=== PATIENT | female | born 1990 | race Caucasian/White ===

== ENCOUNTER 2016-09-14 07:49 | Inpatient (IN) | payer OTHER ==
[2016-09-14] VITALS (32 sets, daily range): BP systolic 110–140; BP diastolic 54–84; PULSE 68–88; RESP 16–18; TEMP 97.8–98.1
[~2016-09-14] VITALS: Ht 167.6 cm; Wt 72.6 kg
[2016-09-14] MEDS ORDERED: LACTATED RINGER'S 1000 ML INJ 1,000 ML IV PRN (08:51)
[2016-09-14] MEDS ORDERED: CITRIC ACID-SODIUM CITRATE LIQ 30 ML UDC PO SCH (09:00)
[2016-09-14] MEDS ORDERED: LIDOCAINE HCL 1% 50 ML VIAL INFIL PRN (09:00)
[2016-09-14] MEDS ORDERED: LIDOCAINE HCL 1% 50 ML VIAL I-DERMAL PRN (09:00)
[2016-09-14] MEDS ORDERED: MINERAL OIL 10 ML VIAL TOPICAL PRN (09:00)
[2016-09-14] MEDS ORDERED: OXYTOCIN 30 UNITS-500ML PREMIX 500 ML IV ONE (09:00)
[2016-09-14] MEDS ORDERED: SODIUM CHLORID 0.9% 500 ML INJ 500 ML IV PRN (09:00)
[2016-09-14] MEDS ORDERED: OXYTOCIN 30 UNITS-500ML PREMIX 500 ML IV SCH (09:00)
[2016-09-14] MEDS ORDERED: PENICILLIN G POTASSIUM INJ 5,000,000 UNITS in SODIUM CHLORIDE 0.9% INJ 100 ML IV ONE ×2 (09:00→22:00)
[2016-09-14 09:04] LABS: AUTOMATED NEUTROPHIL # 13.2 TH/MM3 (1.8-7.7); BASOPHIL # 0.1 TH/MM3 (0-0.2); BASOPHIL % 0.4 % (0.0-2.0); EOSINOPHIL # 0.1 TH/MM3 (0-0.4); EOSINOPHIL % 0.5 % (0.0-4.0); HEMATOCRIT 36.2 % (35.0-46.0); LYMPH % 14.3 % (9.0-44.0); LYMPHOCYTE # 2.4 TH/MM3 (1.0-4.8); MEAN CELL VOLUME 93.2 FL (80.0-100.0); MEAN CORPUSCULAR HEMOGLOBIN 31.5 PG (27.0-34.0); MEAN CORPUSCULAR HGB CONC 33.9 % (32.0-36.0); MONO % 5.6 % (0.0-8.0); NEUT % 79.2 % (16.0-70.0); PLATELET COUNT 237 TH/MM3 (150-450); RED BLOOD COUNT 3.88 MIL/MM3 (4.00-5.30); RED CELL DISTRIBUTION WIDTH 13.3 % (11.6-17.2); WHITE BLOOD COUNT 16.6 TH/MM3 (4.0-11.0)
[2016-09-14 09:08] LABS: HEMO FLAGS AUTO DIFF
[2016-09-14] MEDS ORDERED: SODIUM CHLOR 0.9% 1000 ML INJ 1,000 ML IV PRN (09:11)
[2016-09-14 09:12] LABS: BACTERIA, URINE FEW /hpf; BLOOD, URINE NEG (NEG); COMMENT (UR) CULT NOT INDICATED; CULTURE IF INDICATED CULT NOT INDICATED; GLUCOSE,URINE NEG (NEG); KETONE, URINE NEG (NEG); MUCUS URINE FEW /lpf (OCC); NITRITE,URINE NEG (NEG); SQUAMOUS EPITHELIAL CELL URINE 6 /hpf (0-5); URINE COLOR YELLOW (YELLW/STRAW)
[2016-09-14 09:52] LABS: BANDS 14 % (0-6); MYELOCYTES 5 % (0-0); NEUTROPHIL # MANUAL DIFF 13.4 TH/MM3 (1.8-7.7); PLATELET ESTIMATE SMEAR NORMAL (NORMAL); POLYS (SEG NEUTROPHILS) 62 % (16-70); WBC DIFF SAMPLE 100
[2016-09-14 09:53] LABS: PLATELET MORPHOLOGY ENLARGED (NORMAL); SCAN/DIFF FINAL DIFF MANUAL
[2016-09-14] MEDS ORDERED: PREN29TA PO (10:04)
[2016-09-14] MEDS ORDERED: MISOPROSTOL 25 MCG SUPP VAGINAL PRN (10:15)
[2016-09-14] MEDS: LACTATED RINGER'S 1000 ML INJ 1,000 ML IV SCH ×2 (10:26→16:51)
[2016-09-14] MEDS ORDERED: PENICILLIN G POTASSIUM INJ 2,500,000 UNITS in SODIUM CHLORIDE 0.9% INJ 100 ML IV SCH (13:00)
[2016-09-14] MEDS ORDERED: fentaNYL 2MCG-BUPIV 0.125% INJ 100 ML ONE (21:33)
[2016-09-14] MEDS ORDERED: ePHEDrine/NS 25 MG/5 ML SYR ONE (21:33)
--- NOTE | 2016-09-14 21:58 | HHI.HP ---
HPI Chief Complaint induction at 39 weeks Date Seen: Sep 14, 2016 Time Seen: 09:00 Travel History International Travel<30 Days: No Contact w/Intl Traveler<30Days: No Known Affected Area: No History of Present Illness HPI good care with good dates and DOANTO 09/15/2016 Para: 0 : 2 Miscarriage: 1 History Past Medical History Medical History: Denies Significant Hx Obstetric History Obstetric History miscarriage end of 2015 Past Surgical History Narrative Surgical none Surgical History: No Previous Surgery Family History Family History: Negative Social History Alcohol Use: No Tobacco Use: No Substance Abuse: No Allergies-Medications (Allergen,Severity, Reaction): Coded Allergies: No Known Allergies (Unverified , 09/14/16) Home Meds Reported Medications Vit-Iron Carbonyl ( Plus Iron 29-1 mg)1 Tab Tab1 Tab PO DAILY #30 TAB Ref 0 09/14/16 Review of Systems Except as stated in HPI: all other systems reviewed are Neg Physical Exam Vital Signs Date Time Temp Pulse Resp B/P Pulse Ox O2 Delivery O2 Flow Rate FiO2 09/14/16 21:30 68 135/78 09/14/16 20:30 83 121/72 09/14/16 20:05 16 09/14/16 20:04 78 126/80 09/14/16 20:00 98.1 09/14/16 19:00 77 126/79 09/14/16 18:30 86 130/77 09/14/16 18:00 78 125/74 09/14/16 17:30 72 127/74 09/14/16 17:23 78 129/73 09/14/16 16:50 83 129/79 09/14/16 16:30 97.8 09/14/16 16:30 81 124/76 09/14/16 16:00 86 120/73 09/14/16 15:44 70 127/84 09/14/16 15:31 75 130/67 09/14/16 15:15 83 136/77 09/14/16 14:44 84 125/71 Narrative GENERAL: Well-nourished, well-developed patient. SKIN: Warm and dry. HEAD: Normocephalic and atraumatic. EYES: No scleral icterus. No injection or drainage. ENT: No nasal drainage noted. Mucous membranes pink. Airway patent. NECK: Supple, trachea midline. No JVD. CARDIOVASCULAR: Regular rate and rhythm without murmurs, gallops, or rubs. RESPIRATORY: Breath sounds equal bilaterally. No accessory muscle use. BREASTS: Bilateral exam showed no masses , no retractions, no nipple discharge. ABDOMEN/GI: Abdomen soft, non-tender, bowel sounds present, no rebound, no guarding Gravid to 39weeks size Fundal Height: [-] GENITOURINARY: External Genitalia: intact and normal in appearance BUS glands: [-] Cervix: Closed Dilatation: [-] Effacement: [-] Station: -2 Presentation: vtx Membranes: intact Uterine Contractions: none FHT's: Category: 1 Baseline: [-] Reactive: [-] Variability: [-] Decels: [-] EXTREMITIES: No cyanosis or edema. BACK: Nontender without obvious deformity. No CVA tenderness. NEUROLOGICAL: Awake and alert. Motor and sensory grossly within normal limits. Five out of 5 muscle strength in all muscle groups. Normal speech. Data Data Vital Signs Reviewed: Yes Orders Admit To Inpatient (09/14/16 ) Code Status (09/14/16 08:51) Vital Signs (Adult) .Per protocol (09/14/16 08:51) ^ Heart (09/14/16 08:51) ^ Amnioinfusion (09/14/16 08:51) Urinary Catheter Management .ONCE (09/14/16 08:51) Lactated Ringer's 1000 Ml Inj (Lr 1000 M (09/14/16 08:51) Lactated Ringer's 1000 Ml Inj (Lr 1000 M (09/14/16 08:51) Sodium Chlorid 0.9% 500 Ml Inj (Ns 500 M (09/14/16 09:00) Sodium Chlor 0.9% 1000 Ml Inj (Ns 1000 M (09/14/16 09:11) Lidocaine 1% Inj (50 Ml) (Xylocaine 1% I (09/14/16 09:00) Citric Acid-Sodium Citrate Liq (Bicitra (09/14/16 09:00) Fentanyl Inj (Fentanyl Inj) (09/14/16 09:00) Fentanyl Inj (Fentanyl Inj) (09/14/16 09:00) Complete Blood Count With Diff (09/14/16 08:51) Hold Clot (09/14/16 08:51) Abo/Rh Blood Type (09/14/16 08:51) Urinalysis - C+S If Indicated (09/14/16 08:51) Resp Oxygen Non Rebreathe Mask (09/14/16 ) ^ Epidural / Intrathecal Infus (09/14/16 08:51) Oxytocin 30 Units-500ml Premix (Pitocin (09/14/16 09:00) Lidocaine 1% Inj (50 Ml) (Xylocaine 1% I (09/14/16 09:00) Light Mineral Oil (Muri-Lube Oil) (09/14/16 09:00) Inpatient Certification (09/14/16 ) Specimen To Be Collected PRN (09/14/16 08:51) ^ Non Stress Test (09/14/16 08:53) Response To Medication .Post New Med Administration, Reaction (09/14/16 08:53) ^ Discontinue Medication (09/14/16 08:53) Oxytocin 30 Units-500ml Premix (Pitocin (09/14/16 09:00) Penicillin G Potassium Inj (Pfizerpen-G (09/14/16 09:00) Penicillin G Potassium Inj (Pfizerpen-G (09/14/16 13:00) Diet Regular Basic (09/14/16 Breakfast) ^ Labor Induction (09/14/16 09:30) ^ Vaginal Insert (09/14/16 09:30) ^ Vaginal Lavage (09/14/16 09:30) ^ Heart (09/14/16 09:30) Misoprostol Supp (Cytotec Supp) (09/14/16 10:15) Penicillin G Potassium Inj (Pfizerpen-G (09/14/16 22:00) Penicillin G Potassium Inj (Pfizerpen-G (09/15/16 02:00) Fentanyl 2mcg-Bupiv 0.125% Inj (Fentanyl (09/14/16 21:33) Ephedrine/Ns 25 Mg/5 Ml Syr (Ephedrine/N (09/14/16 21:33) Labs Laboratory Tests Test 09/14/16 09/14/16 08:00 08:30 Urine Color YELLOW Urine Turbidity HAZY Urine pH 6.0 Urine Specific [place] 1.015 Urine Protein NEG Urine Glucose (UA) NEG Urine Ketones NEG Urine Occult Blood NEG Urine Nitrite NEG Urine Bilirubin NEG Urine Urobilinogen LESS THAN 2.0 Urine Leukocyte Esterase TRACE Urine RBC 4 Urine WBC 6 Urine Squamous Epithelial 6 Cells Urine Bacteria FEW Urine Mucus FEW Microscopic Urinalysis Comment CULT NOT INDICATED White Blood Count 16.6 Red Blood Count 3.88 Hemoglobin 12.2 Hematocrit 36.2 Mean Corpuscular Volume 93.2 Mean Corpuscular Hemoglobin 31.5 Mean Corpuscular Hemoglobin 33.9 Concent Red Cell Distribution Width 13.3 Platelet Count 237 Mean Platelet Volume 10.5 Neutrophils (%) (Auto) 79.2 Lymphocytes (%) (Auto) 14.3 Monocytes (%) (Auto) 5.6 Eosinophils (%) (Auto) 0.5 Basophils (%) (Auto) 0.4 Neutrophils # (Auto) 13.2 Lymphocytes # (Auto) 2.4 Monocytes # (Auto) 0.9 Eosinophils # (Auto) 0.1 Basophils # (Auto) 0.1 CBC Comment AUTO DIFF Differential Total Cells 100 Counted Neutrophils % (Manual) 62 Band Neutrophils % 14 Lymphocytes % 17 Monocytes % 2 Neutrophils # (Manual) 13.4 Myelocytes 5 Differential Comment FINAL DIFF MANUAL Platelet Estimate NORMAL Platelet Morphology Comment ENLARGED Blood Type O POSITIVE Blood Bank Comment Band and Hold Assessment/Plan Problem List: (1) 39 weeks gestation of Assessment and Plan cytotec induction Jimmy Jo MD Sep 14, 2016 21:58
--- NOTE | 2016-09-14 22:03 | PD.LABORPN ---
Subjective Subjective patient had 1 dose of cytotec and cervix is 1 cm and ok to start pitocin to augment, counselled about options at 2 cm and 12 hours into induction and she opted for AROM Objective Vital Signs Vital Signs Date Time Temp Pulse Resp B/P Pulse Ox O2 Delivery O2 Flow Rate FiO2 09/14/16 21:30 68 135/78 09/14/16 20:30 83 121/72 09/14/16 20:05 16 09/14/16 20:04 78 126/80 09/14/16 20:00 98.1 09/14/16 19:00 77 126/79 09/14/16 18:30 86 130/77 09/14/16 18:00 78 125/74 09/14/16 17:30 72 127/74 09/14/16 17:23 78 129/73 09/14/16 16:50 83 129/79 09/14/16 16:30 97.8 09/14/16 16:30 81 124/76 09/14/16 16:00 86 120/73 09/14/16 15:44 70 127/84 09/14/16 15:31 75 130/67 09/14/16 15:15 83 136/77 09/14/16 14:44 84 125/71 Objective Pelvic Exam: Cervix: [-] Dilatation: 2 Effacement: 50 Station: -2 Presentation: vtx Membranes: ruptured Uterine Contractions: [-] FHT's: Category: 1 Baseline: [-] Reactive: [-] Variability: [-] Decels: [-] Assessment/Plan Problem List: (1) 39 weeks gestation of Assessment and Plan AROM clear and comitted to delivery Jimmy Jo MD Sep 14, 2016 22:03
[2016-09-14] MEDS ORDERED: DO NOT ADMINISTER ANTICOAGULANTS XX PRN (22:30)
[2016-09-14] MEDS ORDERED: ePHEDrine/NS 25 MG/5 ML SYR IV PRN (22:30)
[2016-09-14] MEDS ORDERED: NO SYSTEM NARCOTICS XX PRN (22:30)
[2016-09-15] VITALS (52 sets, daily range): BP systolic 98–148; BP diastolic 50–97; PULSE 67–102; RESP 18–20; TEMP 97.9–99.7
[2016-09-15] MEDS: LACTATED RINGER'S 1000 ML INJ 1,000 ML IV SCH ×3 (00:51→16:51)
[2016-09-15] MEDS: fentaNYL 2MCG-BUPIV 0.125% 100 ML EPIDURAL SCH ×2 (01:58→04:06)
[2016-09-15] MEDS: PENICILLIN G POTASSIUM INJ 2,500,000 UNITS in SODIUM CHLORIDE 0.9% INJ 100 ML IV SCH ×4 (02:06→18:00)
[2016-09-15] MEDS ORDERED: BUPIVACAINE HCL PF 0.25% 10 ML VIAL ONE (08:18)
[2016-09-15] MEDS ORDERED: LIDOCAINE HCL 1.5% PF SOLN 20 ML AMP ONE (08:18)
[2016-09-15] MEDS ORDERED: ONDANSETRON ODT 4 MG TAB PO PRN (13:00)
[2016-09-15] MEDS ORDERED: DOCUSATE SODIUM 50 MG/SENNA 8.6 MG TAB PO PRN (13:00)
[2016-09-15] MEDS ORDERED: BENZOCAINE 20% TOPICAL SPRAY 60 ML CAN TOPICAL PRN (13:00)
[2016-09-15] MEDS ORDERED: ALUMINUM/MAGNESIUM/SIMETH 30 ML CUP PO PRN (13:00)
[2016-09-15] MEDS ORDERED: ZOLPIDEM TARTRATE 5 MG TAB PO PRN (13:00)
[2016-09-15] MEDS ORDERED: WITCH HAZEL 50%/GLYCERIN 12.5% 40 PAD JAR TOPICAL PRN (13:00)
[2016-09-15] MEDS ORDERED: SODIUM CHLORIDE 0.9% FLUSH 10 ML FLUSH IV FLUSH PRN (13:00)
[2016-09-15] MEDS: IBUPROFEN 600 MG TAB PO PRN (14:45)
--- NOTE | 2016-09-15 15:15 | PD.OB.DELI ---
Delivery Date: Sep 15, 2016 Anesthesia: Epidural Episiotomy: Right mediolateral Vaginal Delivery: Vacuum Presentation: Occiput anterior Nuchal Cord: None Delayed cord clamping (45 sec): Yes : Male, Single Weight: 7# 9 oz Infant Care: Spontaneous crying Placenta: Spontaneous delivery Laceration: Vaginal laceration, 2 deg Repair: Chromic interrupted, Chromic running Jimmy Jo MD Sep 15, 2016 15:15
[2016-09-15] MEDS ORDERED: MEASLES, MUMPS, RUBELLA VACCINE 0.5 ML VIAL SQ ONE (16:00)
[2016-09-15] MEDS ORDERED: DIPHTH/TETANUS/ACEL PERTUSSIS (BOOSTER) 0.5 ML VIAL/PFS IM ONE (16:00)
[2016-09-15] MEDS ORDERED: SODIUM CHLORIDE 0.9% FLUSH 10 ML FLUSH IV FLUSH SCH (21:00)
[2016-09-16] MEDS: IBUPROFEN 600 MG TAB PO PRN ×4 (00:03→21:04)
[2016-09-16] MEDS: ACETAMINOPHEN 325 MG TAB PO PRN ×2 (00:03→06:05)
--- NOTE | 2016-09-16 03:21 | HHI.DCPOC ---
Discharge Care Plan Diagnosis: (1) 39 weeks gestation of Report Symptoms to Your Doctor -Temperate above 100.5 degrees -Redness, of incision or excessive or foul smelling drainage -Unusual pain or calf pain -Increased vaginal bleeding -Painful or difficulty urinating -Feelings of extreme sadness or anxiety after 2 weeks Goals to Promote Your Health * To prevent worsening of your condition and complications * To maintain your health at the optimal level Directions to Meet Your Goals Take your medications as prescribed Follow your dietary instruction Follow activity as directed Ensure plenty of rest for recovery Drink fluids for hydration Keep your appointments as scheduled Take your immunizations and boosters as scheduled If your symptoms worsen call your PCP, if no PCP go to Urgent Care Center or Emergency Room Smoking is Dangerous to Your Health. Avoid second hand smoke Call the 24-hour crisis hotline for domestic abuse at Jimmy Jo MD Sep 16, 2016 03:21
[2016-09-16] MEDS ORDERED: OXYC1TAB63 PO (08:15)
--- NOTE | 2016-09-16 08:15 | HHI.OB ---
Subjective Post Day: 1 Remarks doing well but complains of vulvar pain from repair. She is ambulating and bleeding moderate Objective Vitals/I&O Vital Signs Date Time Temp Pulse Resp B/P Pulse Ox O2 Delivery O2 Flow Rate FiO2 09/16/16 01:03 16 09/16/16 01:03 16 09/15/16 19:21 98.5 75 18 107/52 09/15/16 16:19 98.6 95 18 107/63 09/15/16 15:15 18 09/15/16 15:00 102 121/60 09/15/16 14:32 98.7 18 09/15/16 14:30 79 141/78 09/15/16 14:15 70 148/82 09/15/16 14:06 20 09/15/16 14:00 77 141/79 09/15/16 13:51 20 09/15/16 13:49 74 143/68 09/15/16 13:45 76 140/97 09/15/16 13:30 78 127/66 09/15/16 13:16 20 09/15/16 13:15 71 121/61 09/15/16 13:06 20 09/15/16 13:00 99 20 109/62 09/15/16 12:51 94 121/70 09/15/16 12:45 99.7 20 09/15/16 12:30 87 115/58 09/15/16 10:30 69 125/73 09/15/16 10:13 99.3 20 09/15/16 10:00 81 114/66 09/15/16 09:45 20 09/15/16 09:30 76 123/72 09/15/16 09:15 20 09/15/16 09:00 84 118/63 09/15/16 08:30 87 122/63 Objective Remarks GENERAL: Well-nourished, well-developed patient. ABDOMEN/GI: Abdomen soft, non-tender. Fundus: Firm, non-tender at umbilicus. GENITOURINARY: Light to moderate bleeding. EXTREMITIES: No cyanosis or edema, non-tender, without signs of DVT. Medications and IVs Current Medications Medications (Trade) Dose Ordered Sig/Yazmin Route Start Time Stop Time Status Last Admin Lactated Ringer's 1,000 ml @ 125 mls/hr Q8H IV 09/14/16 08:51 09/15/16 02:08 Lactated Ringer's 1,000 ml @ 3,000 mls/hr Q20M PRN IV 09/14/16 08:51 09/14/16 14:41 (NS 1000 ml Inj) 1,000 ml @ 100 mls/hr Q10H PRN IV 09/14/16 09:11 (fentaNYL INJ) 50 mcg Q1H PRN IV PUSH 09/14/16 09:00 (fentaNYL INJ) 100 mcg Q1H PRN IV PUSH 09/14/16 09:00 Mineral Oil 10 ml 10 ml UNSCH PRN TOPICAL 09/14/16 09:00 Oxytocin 500 ml @ 0 mls/hr TITRATE IV 09/14/16 09:00 09/14/16 14:40 Penicillin G Potassium 2060556 units/Sodium Chloride 100 ml @ 200 mls/hr Q4H IV 09/15/16 02:00 09/15/16 05:59 (fentaNYL 2MCG-BUPIV 0.125% INJ) 100 ml @ 0 mls/hr TITRATE EPIDURAL 09/14/16 22:30 09/15/16 04:06 (NS Flush) 2 ml BID IV FLUSH 09/15/16 21:00 (NS Flush) 2 ml UNSCH PRN IV FLUSH 09/15/16 13:00 (Tylenol) 650 mg Q4H PRN PO 09/15/16 13:00 09/16/16 06:05 (Motrin) 600 mg Q6H PRN PO 09/15/16 13:00 09/16/16 06:05 (Percocet 5-325 Mg) 1 tab Q4H PRN PO 09/15/16 13:00 (Percocet 5-325 Mg) 2 tab Q4H PRN PO 09/15/16 13:00 (Americaine 20% Top Spr) 1 spray Q4H PRN TOPICAL 09/15/16 13:00 (Tucks Pads) 1 applic QID PRN TOPICAL 09/15/16 13:00 (Mignon-Colace) 2 tab Q12H PRN PO 09/15/16 13:00 (Ambien) 5 mg HS PRN PO 09/15/16 13:00 (Mag-Al Plus Susp Liq) 15 ml Q8H PRN PO 09/15/16 13:00 (Zofran Odt) 4 mg Q6H PRN PO 09/15/16 13:00 Assessment/Plan Problem List: (1) 39 weeks gestation of (2) Spontaneous vaginal delivery Assessment and Plan doing well dc 09/17 Jimmy Jo MD Sep 16, 2016 08:15
[2016-09-16] MEDS: oxyCODONE/ACETAMINOPHEN 5 MG/325 MG TAB PO PRN ×3 (10:23→21:04)
[2016-09-16 19:10] VITALS: BP 130/74; PULSE 70; RESP 18; TEMP 98.3
[2016-09-17] MEDS: oxyCODONE/ACETAMINOPHEN 5 MG/325 MG TAB PO PRN ×2 (03:14→08:01)
--- NOTE | 2016-09-17 07:47 | HHI.OB ---
Subjective Post Day: 2 Remarks doing well Objective Vitals/I&O Vital Signs Date Time Temp Pulse Resp B/P Pulse Ox O2 Delivery O2 Flow Rate FiO2 09/17/16 04:14 16 09/16/16 21:56 16 09/16/16 19:10 98.3 70 18 130/74 Objective Remarks GENERAL: Well-nourished, well-developed patient. ABDOMEN/GI: Abdomen soft, non-tender. Fundus: Firm, non-tender at umbilicus. GENITOURINARY: Light to moderate bleeding. EXTREMITIES: No cyanosis or edema, non-tender, without signs of DVT. Medications and IVs Current Medications Medications (Trade) Dose Ordered Sig/Yazmin Route Start Time Stop Time Status Last Admin Lactated Ringer's 1,000 ml @ 125 mls/hr Q8H IV 09/14/16 08:51 09/15/16 02:08 Lactated Ringer's 1,000 ml @ 3,000 mls/hr Q20M PRN IV 09/14/16 08:51 09/14/16 14:41 (NS 1000 ml Inj) 1,000 ml @ 100 mls/hr Q10H PRN IV 09/14/16 09:11 (fentaNYL INJ) 50 mcg Q1H PRN IV PUSH 09/14/16 09:00 (fentaNYL INJ) 100 mcg Q1H PRN IV PUSH 09/14/16 09:00 Mineral Oil 10 ml 10 ml UNSCH PRN TOPICAL 09/14/16 09:00 Oxytocin 500 ml @ 0 mls/hr TITRATE IV 09/14/16 09:00 09/14/16 14:40 Penicillin G Potassium 3164912 units/Sodium Chloride 100 ml @ 200 mls/hr Q4H IV 09/15/16 02:00 09/15/16 05:59 (fentaNYL 2MCG-BUPIV 0.125% INJ) 100 ml @ 0 mls/hr TITRATE EPIDURAL 09/14/16 22:30 09/15/16 04:06 (NS Flush) 2 ml BID IV FLUSH 09/15/16 21:00 (NS Flush) 2 ml UNSCH PRN IV FLUSH 09/15/16 13:00 (Tylenol) 650 mg Q4H PRN PO 09/15/16 13:00 09/16/16 06:05 (Motrin) 600 mg Q6H PRN PO 09/15/16 13:00 09/16/16 21:04 (Percocet 5-325 Mg) 1 tab Q4H PRN PO 09/15/16 13:00 09/16/16 14:29 (Percocet 5-325 Mg) 2 tab Q4H PRN PO 09/15/16 13:00 09/17/16 03:14 (Americaine 20% Top Spr) 1 spray Q4H PRN TOPICAL 09/15/16 13:00 (Tucks Pads) 1 applic QID PRN TOPICAL 09/15/16 13:00 09/16/16 15:27 (Mignon-Colace) 2 tab Q12H PRN PO 09/15/16 13:00 09/16/16 21:04 (Ambien) 5 mg HS PRN PO 09/15/16 13:00 (Mag-Al Plus Susp Liq) 15 ml Q8H PRN PO 09/15/16 13:00 (Zofran Odt) 4 mg Q6H PRN PO 09/15/16 13:00 Assessment/Plan Problem List: (1) 39 weeks gestation of (2) Spontaneous vaginal delivery Assessment and Plan dc today Jimmy Jo MD Sep 17, 2016 07:47
--- NOTE | 2016-09-17 07:49 | HHI.DS ---
Admission Date Sep 14, 2016 at 07:49 Discharge Date: Sep 17, 2016 Admitting Diagnosis Diagnosis: (1) Spontaneous vaginal delivery Delivery Date: Sep 15, 2016 Vaginal Delivery: Normal : Male, Single Brief History good care with good dates and DONATO 09/15/2016 Hospital Course doing well ppd #2 Pt Condition on Discharge: Good Discharge Disposition: Discharge Home Discharge Instructions Diet Instructions: As Tolerated, No Restrictions Activities You Can Perform: Pelvic Rest Activities to Avoid: Driving for 24 hrs Follow up Referrals: [facility] TECHNICIAN - 2 Weeks @ [facility] with Jimmy Jo MD New Medications: Oxycodone-Acetaminophen (Oxycodone-Acetaminophen) 5-325 mg Tab 2 TAB PO Q4H PRN PAIN SCALE 6 TO 10 #30 TAB Discontinued Medications: Vit-Iron Carbonyl ( Plus Iron 29-1 mg) 1 Tab Tab 1 TAB PO DAILY Nutritional Supplement #30 Ref 0 TAB Jimmy Jo MD Sep 17, 2016 07:48
[2016-09-17 07:53] VITALS: BP 119/75; PULSE 80; RESP 18; TEMP 98.3
[2016-09-17] MEDS: IBUPROFEN 600 MG TAB PO PRN (08:01)
== END 2016-09-17 09:03 | disposition home or self-care (01) | DRG 775 ==
LOC: H2EA 07:49 → H2EB 08:00 → H1EA 09-15 16:26
PROVIDERS: ADMIT Obstetrics & Gynecology; ATTEND Obstetrics & Gynecology
PROC: 3E0P7GC Introduction of Other Therapeutic Substance into Female Reproductive, Via Natural or Artificial Opening (ICD-10-PCS; 2016-09-14)
PROC: 10907ZC Drainage of Amniotic Fluid, Therapeutic from Products of Conception, Via Natural or Artificial Opening (ICD-10-PCS; 2016-09-14)
PROC: 3E0S3CZ (ICD-10-PCS; 2016-09-14)
PROC: 00HU33Z Insertion of Infusion Device into Spinal Canal, Percutaneous Approach (ICD-10-PCS; 2016-09-14)
PROC: 10D07Z6 Extraction of Products of Conception, Vacuum, Via Natural or Artificial Opening (ICD-10-PCS; principal; 2016-09-15)
PROC: 0KQM0ZZ Repair Perineum Muscle, Open Approach (ICD-10-PCS; 2016-09-15)
PROC: 0W8NXZZ Division of Female Perineum, External Approach (ICD-10-PCS; 2016-09-15)
DX: O26.893 Other specified pregnancy related conditions, third trimester (principal); O70.1 Second degree perineal laceration during delivery; Z37.0 Single live birth; Z3A.39 39 weeks gestation of pregnancy
CPT/HCPCS: 59025; 81001; 85007; 85027; 86900; 86901; 90715; J2540; J2590; J3010; J7120